=== PATIENT | female | born 1935 | race Caucasian/White ===

== ENCOUNTER 2018-05-30 05:25 | Day surgery (SDC) | payer OTHER, BC ==
[~2018-05-30] VITALS: Ht 157.5 cm; Wt 64.8 kg
--- NOTE | ~2018-05-30 | O ---
[facility] [place] [address] OPERATIVE REPORT Name: ROLDAN VENEGAS Room #: 150-4 [facility]..#: [id number] Admission: 05/30/18 Attend Phys: Brandon Yusuf MD Discharge: Date of : 35 Report #: [id number] THIS REPORT FOR: //name// CC: Zeb Yusuf DATE OF SERVICE: 05/30/2018 PATIENT OF: Dr. Brandon Yusuf and Dr. Zeb Jarquin. PREOPERATIVE DIAGNOSES: Cholelithiasis, cholecystitis, biliary colic. POSTOPERATIVE DIAGNOSES: Cholelithiasis, cholecystitis, biliary colic with extensive intra-abdominal adhesions doubling the operative time. PROCEDURE: Laparoscopic cholecystectomy with extensive laparoscopic lysis of adhesions doubling the operative time. SURGEON: Brandon Yusuf MD FURNACE COMBUSTION ANALYST: Bri Napier RN. ANESTHESIA: General. DESCRIPTION OF PROCEDURE: The patient was brought to the operating room and placed on operative table in the supine position. Sequential compression devices were in place for DVT prophylaxis. She received an appropriate preoperative dose of antibiotics. The patient underwent a general endotracheal anesthesia and the abdomen was then prepped and draped in a sterile fashion. Skin and subcutaneous tissue around the umbilicus was then infiltrated with 0.5% Marcaine. A transverse infraumbilical skin incision was then performed using #11 scalpel blade. Hemostasis obtained using electrocautery. The midline abdominal fascia was then grasped between 2 Anglees clamps and incised with a curved Burciaga scissors. The peritoneum was entered and some adhesions around the umbilicus were carefully dissected free using clamp and Metzenbaum scissors. A 0 Vicryl pursestring suture was then placed in the fascia and the 12 mm disposable Tammy port was then inserted through the opening, held in place with the balloon port and the pursestring suture. Pneumoperitoneum obtained to a level of 10-15 mmHg. Laparoscope was inserted through this port and exploration was performed, which revealed extensive upper abdominal adhesions. This made visualization of the liver and gallbladder very difficult. I was able to visualize to place two 5 mm Surgiport as well as the upper midline 11 mm Surgiport under direct visualization after infiltration with 0.5% Marcaine. I then underwent an extensive lysis of adhesions, freeing up the omentum and liver and gallbladder from all these adhesions in the right upper quadrant. There [address] [address] OPERATIVE REPORT Name: ROLDAN VENEGAS Room #: 150-4 [facility]#: [id number] Admission: 05/30/18 Attend Phys: Brandon Yusuf MD Discharge: Date of : 35 Report #: [id number] were numerous fiddle-string adhesions over the dome of the liver as well. I eventually dissected enough of these adhesions free to identify the gallbladder, which was then grasped with a grasper and retracted superiorly. Numerous further adhesions were dissected free away from the wall of the gallbladder. Of note, there were extensive varicose-like dilated venous structures around the lateral medial wall of the gallbladder. These were for the most part kept intact and were able to be dissected free from the wall intact. There were some branches going on to the wall of the gallbladder and these were carefully dissected free and clipped with clips and divided with the scissors. I was able to then dissect down to the neck of the gallbladder and the cystic duct was clearly identified and dissected free down to the cystic common bile duct junction. The cystic duct was then triply clipped on the common bile duct side and doubly clipped on the gallbladder side and divided with scissors. Gallbladder was then dissected free from the bed using the Maryland dissector and the hook electrocautery. This was an extensive dissection trying to stay out of and dissect free the varicose like veins on either side of the gallbladder. In the bed of the gallbladder hemostasis was clearly intact. I was able to dissect up to the top of the gallbladder, which was then dissected free and the gallbladder was taken off the bed and brought out through the periumbilical port and sent as specimen to pathology. Port was then returned to the abdomen. The area was then copiously irrigated with warm saline solution, which was suctioned free and then a very careful and complete examination of the area revealed complete hemostasis. I then spent an additional 20-30 minutes lysing other adhesions around this area, freeing up the duodenum and pylorus as well as some adhesions around the left lateral lobe of the liver. After completing the cholecystectomy and lysis of adhesions and after being assured that hemostasis was intact, the ports were then all removed under direct visualization, hemostasis intact at each port site. Pneumoperitoneum was released and the periumbilical port was then also removed under direct visualization, hemostasis intact at that port site as well. The periumbilical fascia was then closed using a 0 Vicryl pursestring suture. The upper midline fascia was then closed using a 0 Vicryl [id number] suture. Skin was then closed using interrupted vertical mattress 5-0 nylon sutures and the wound was then dressed with Band-Aids. The patient was then awakened from the general endotracheal anesthesia, extubated, and taken to recovery room in good condition. Estimated blood loss was approximately 20 mL and the patient tolerated the procedure well. All sponge, lap and instrument counts correct x 2. By: 1316 [id number] Brandon Yusuf MD /gregory
[~2018-05-30 05:25] MED LIST: CALCIUM 600 +1 EAC1 PO; CORGARD40 M1 PO; LOSARTAN-HCTZ1 EACH PO; NORTRIPTYLINE H25 M3 PO; PRAVACHOL20 MG PO; TRAMADOL 50 MG50 MG PO; VITAMIN B-121000 MCG PO; ZYLOPRIM300 MG PO
[2018-05-30 09:33] LABS: CALCIUM 9.6 mg/dL (8.5-10.1); CREATININE 0.9 mg/dL (0.6-1.0); POTASSIUM 3.7 mmol/L (3.5-5.1)
[2018-05-30 09:46] VITALS: BP 152/72
--- NOTE | 2018-05-30 10:40 | H ---
[facility] [address] HISTORY AND PHYSICAL Name: ROLDAN VENEGAS Room #: 150-4 [facility]..#: [id number] Admission: 05/30/18 Attend Phys: Brandon Yusuf MD Discharge: Date of : 35 Report #: [id number] THIS REPORT FOR: //name// CC: ZEB Yusuf Patient of Dr. Brandon Yusuf and Dr. Zeb Jarquin. DATE OF ADMISSION AND SURGERY: 05/30/2018. CHIEF COMPLAINT: Abdominal pain. HISTORY OF PRESENT ILLNESS: The patient is an 82-year-old -[place]ian female who since February has been having epigastric pain which radiates around both sides of the back. She denies any fever, chills, nausea, vomiting or diarrhea. She has had some constipation. She states pain occasionally awakens her at night. She is not able to identify any particularly inciting events. She had a CAT scan performed, which showed gallbladder sludge. There was no gallbladder wall thickening or ductal dilatation reported. She was also sent for hepatobiliary scan, which was normal. Dr. Jarquin recommended surgical consultation for possible biliary colic due to gallbladder sludge. PAST MEDICAL HISTORY: Hypertension, chronic back pain, gout, degenerative joint disease, history of DVT, anxiety. Hysterectomy. MEDICATIONS: Nadolol 40 mg p.o. every day, losartan/hydrochlorothiazide 50/12.5 one tab p.o. every day. Multivitamin, tramadol p.r.n., pravastatin 20 mg p.o. every day, nortriptyline 25 mg p.o. at bedtime, allopurinol 300 mg p.o. every day, clorazepate p.r.n., losartan. FAMILY HISTORY: Noncontributory. ALLERGIES: No known drug allergies. SOCIAL HISTORY: Retired, lives alone, smokes half pack of cigarettes a day, does not drink alcohol. REVIEW OF SYSTEMS: Pertinent positives as above. Full review of systems as per the electronic medical record, was reviewed by myself. PHYSICAL EXAMINATION: GENERAL: Well-developed, well-nourished -[place]igerian female, in no acute distress. VITAL SIGNS: Stable. She is afebrile. HEENT: Unremarkable. LUNGS: Clear to auscultation bilaterally. [address] [address] HISTORY AND PHYSICAL Name: ROLDAN VENEGAS Room #: [facility]-4 [facility]..#: [id number] Admission: 05/30/18 Attend Phys: Brandon Yusuf MD Discharge: Date of : 35 Report #: [id number] HEART: Regular rate and rhythm. No murmurs, S3, S4, no PMI. ABDOMEN: Soft, flat, nontender. There is a healed lower vertical midline abdominal incision scar. No hernias, no masses. EXTREMITIES: No clubbing, cyanosis or edema. NEUROLOGIC: Intact with a clear mental status. IMPRESSION: An 82-year-old -[place]ian female with a probable biliary colic, possible cholecystitis. I fully discussed with the patient and her niece the diagnosis, prognosis and treatment options and risks and benefits of each. She states she understands and agrees to proposed surgery. I did discuss with the patient and her niece that gallbladder surgery may relieve all, some or none of her symptoms. They state they understand and agreed to proposed surgery. PLAN: We will perform laparoscopic cholecystectomy under general endotracheal anesthesia, 23-hour observation admission to [facility]. The procedure and its risks, benefits and possible complications were fully discussed with the patient including possible open cholecystectomy. They state they understand and agreed to proposed surgery. <ELECTRONICALLY SIGNED> By: Brandon Yusuf MD 05/30/18 1040 [id number] [id number] Brandon Yusuf MD /nt
[2018-05-30] MEDS ORDERED: HYDROCODONE-AP1 EAC6 PO (10:41)
--- NOTE | 2018-05-30 12:43 | EKG ---
[address] [address] ELECTROCARDIOGRAM REPORT Name: VENEGASROLDAN Manny Room #: 150-4 [facility]#: [id number] Admission: 05/30/18 Attend Phys: Brandon Yusuf MD Discharge: Date of : 35 Report #: [id number] THIS REPORT FOR: //name// [facility] Test Date: 2018-05-30 Test Time: 09:18:36 Pat Name: ROLDAN VENEGAS Department: Room: 150 4 Gender: F Desk Editor: KATIE : 1935 Requested By: Brandon Yusuf Order Number: [id number] MD: Humberto Rogers Measurements Intervals Marissa Rate: 74 P: 31 WY: 170 QRS: 29 QRSD: 99 T: 18 QT: 387 QTc: 430 Interpretive Statements Sinus rhythm No previous ECG available for comparison Electronically Signed On 05-30-2018 12:43:06 COMMERCIAL CORRESPONDENT by Humberto Rogers [email or web address] <ELECTRONICALLY SIGNED> By: Humberto Rogers MD 05/30/18 1243 0918 7 Humberto Rogers MD /SNEHA
[2018-05-30 17:05] VITALS: BP 182/103
--- NOTE | 2018-05-30 18:30 | NUR ---
PT RECEIVED FROM THE REC RM AT 1430 TO RM 421 ALERT AND IN NO ACUTE DISTRESS. PT MADE DECISION TO STAY OVERNOC. UP TO THE BSC W/ ASSIST AND TOLERATED FINE. TAKING FULL LIQUIDS W/O NAUSEA. IV MORPHINE GIVEN TRAMADOL NOT STRONG ENOUGH.
[2018-05-30 19:14] VITALS: BP 168/92
--- NOTE | 2018-05-31 00:46 | NUR ---
PT C/O PAIN ON HER ABD,RATED PAIN AT 10/10,MANAGED WITH PO MED.UP TO BSC WITH CANE AND SBA,VOIDING WELL.LAP SITES C/D/I.PT LOOKING FORWARD TO BE DC'D.IVF INFUSING ORDERED.PT ABLE TO MAKE HER NEEDS KNOWN.CALL LIGHT WITHIN REACH.
[2018-05-31 04:03] VITALS: BP 115/54
[2018-05-31 07:34] VITALS: BP 115/54
[2018-05-31 07:55] VITALS: BP 101/44
--- NOTE | 2018-05-31 08:48 | NUR ---
ASSESMENT COMPLETED. VSS. A/O. PAIN MANAGED BY MEDS ORDERED. NO NOTED SOA. NO NV. LAPS X4 COVERED WITH BANDAID CDI. AMBULATED WITH PT IN HALLWAY THIS AM- GOOD ENDURANCE. MEDS GIVEN ORDERED. WILL CONT. TO MONITOR.
[2018-05-31 08:49] VITALS: BP 115/54
--- NOTE | 2018-05-31 09:00 | NUR ---
SPOKE TO JAY FROM DR. YO'S OFFICE- PER DR. YO PT CAN DC TODAY.
--- NOTE | 2018-05-31 09:54 | NUR ---
INITIAL ASSESSMENT: Pt evaluated for d/c planning needs. Reviewed chart and spoke with nurse and pt. Pt is alert and oriented. Pt lives in house with sister and was independent with ADL's prior to admission to the hospital. Pt remains active in the community and is still driving. Pt uses cane for ambulation. Pt has not had home health in the past. Pt plans on returning home with family on d/c from hospital. No d/c needs indicated.
--- NOTE | 2018-05-31 10:48 | NUR ---
DC INSTRUCTIONS GIVEN TO PT. PT VERBALIZED UNDERSTANDING. PT SIGNED DC INSTRUCTIONS- COPY PLACED IN CHART. WAITING FOR TRANSPORT.
--- NOTE | 2018-06-04 10:07 | PATH ---
[facility] [address] [place] [address] PATHOLOGY RPT PROCEDURE Name: ROLDAN VENEGAS Room #: DEP [facility] M.R.#: [id number] Admission: 05/30/18 Date of : 35 Discharge: 05/31/18 Report #: [id number] Path Case #: [id number] [facility] Accession Number: [id number] . 01 Material submitted: . GALLBLADDER . 01 Clinical history: . Biliary colic . 02 Diagnosis: Gallbladder, cholecystectomy: - Mild chronic cholecystitis. - Cholelithiasis. . (IUV:mml; 06/01/2018) [facility]/06/01/2018 . 02 Electronically signed: . Pamela Elliott MD, Pathologist NPI- [id number] . 01 Gross description: . The specimen is received in formalin, labeled "Roldan Venegas, gallbladder" and consists of an intact, green-regan and ragged gallbladder measuring 10.0 cm in length and up to 3.4 cm in diameter. The proximal margin is inked black. Opening reveals a lumen filled with green bile and multiple black gravel-like calculi ranging from 0.1-0.4 cm. The mucosa is green and velvety with no masses or lesions. The wall averages 0.1 cm. Medical Lab Technologist sections are submitted in A1. (SDY; 05/31/2018) SYU/SYU . 02 Pathologist provided ICD-10: K80.10 . 02 CPT . 668071 Specimen Comment: A courtesy copy of this report has been sent to Specimen Comment: [phone], . Specimen Comment: Report sent to / DR BRYAN Specimen Comment: A duplicate report has been generated due to demographic updates. Performed at: [address] [id number] MD Anthony Rowe MD Phone: [phone] [place] [address] [address] [place] [address] PATHOLOGY RPT PROCEDURE Name: ROLDAN VENEGAS Room #: DEP [facility] Lisbet#: [id number] Admission: 05/30/18 Date of : 35 Discharge: 05/31/18 Report #: [id number] Path Case #: [id number] Performed at: [address], [place] [id number] MD Pamela Elliott MD Phone: [phone]
== END 2018-05-31 13:01 | disposition home or self-care (01) ==
LOC: OR 05:25 → TBA 05:25 → 4E 14:21 → OR 15:03 → ENTRNSPT 05-31 11:55 → EDTRNSPTSTS 05-31 11:57 → OR 05-31 13:01
PROVIDERS: Surgery
DX: K80.10 Calculus of gallbladder with chronic cholecystitis without obstruction (principal); I10 Essential (primary) hypertension; G89.29 Other chronic pain; M19.90 Unspecified osteoarthritis, unspecified site; F41.9 Anxiety disorder, unspecified; F17.210 Nicotine dependence, cigarettes, uncomplicated; E78.00 Pure hypercholesterolemia, unspecified; M10.9 Gout, unspecified; Z98.890 Other specified postprocedural states; Z86.718 Personal history of other venous thrombosis and embolism; Z90.710 Acquired absence of both cervix and uterus; Z79.899 Other long term (current) drug therapy
CPT/HCPCS: 10783; 50010; 50101; 50411; 50555; 50558; 51474; 51489; 52266; 53314; 56462; 56524; 56528